=== PATIENT | female | born 1970 | race Caucasian/White ===

== ENCOUNTER 2017-11-26 09:24 | Observation (INO) | payer BC ==
[~2017-11-26] VITALS: Ht 162.6 cm; Wt 101.0 kg
[~2017-11-26 09:24] MED LIST: ALPR2TAB3 PO; CEPH500C3 PO; HYDR12.56 PO; LORTA5 PO
[2017-11-26 09:33] VITALS: BP 168/84; PULSE 94; RESP 18; TEMP 97.6; O2SAT 99
[2017-11-26 09:44] LABS: AUTOMATED NEUTROPHIL # 3.8 TH/MM3 (1.8-7.7); BASOPHIL # 0.1 TH/MM3 (0-0.2); BASOPHIL % 1.4 % (0.0-2.0); EOSINOPHIL # 0.1 TH/MM3 (0-0.4); EOSINOPHIL % 1.4 % (0.0-4.0); HEMATOCRIT 43.6 % (35.0-46.0); HEMOGLOBIN 14.2 GM/DL (11.6-15.3); LYMPH % 22.1 % (9.0-44.0); LYMPHOCYTE # 1.2 TH/MM3 (1.0-4.8); MEAN CELL VOLUME 82.1 FL (80.0-100.0); MEAN CORPUSCULAR HEMOGLOBIN 26.8 PG (27.0-34.0); MEAN CORPUSCULAR HGB CONC 32.6 % (32.0-36.0); MEAN PLATELET VOLUME 8.2 FL (7.0-11.0); MONO % 7.1 % (0.0-8.0); MONOCYTE # 0.4 TH/MM3 (0-0.9); PLATELET COUNT 249 TH/MM3 (150-450); RED BLOOD COUNT 5.32 MIL/MM3 (4.00-5.30); RED CELL DISTRIBUTION WIDTH 12.6 % (11.6-17.2); WHITE BLOOD COUNT 5.6 TH/MM3 (4.0-11.0)
[2017-11-26 09:56] LABS: CALCIUM 8.2 MG/DL (8.5-10.1); CHLORIDE 99 MEQ/L (98-107); SODIUM (NA) 136 MEQ/L (136-145)
[2017-11-26 09:57] LABS: BICARBONATE 31.9 MEQ/L (21.0-32.0); BLOOD UREA NITROGEN 13 MG/DL (7-18); GLUCOSE,RANDOM 66 MG/DL (74-106)
[2017-11-26 10:00] LABS: GLOMERULAR FILTRATION RATE 89 ML/MIN (>89)
[2017-11-26 10:02] VITALS: BP 154/90; PULSE 74; RESP 18; O2SAT 99
[2017-11-26 10:05] LABS: TROPONIN I LESS THAN 0.02 NG/ML (0.02-0.05)
--- NOTE | 2017-11-26 10:12 | PD ---
HPI Chief Complaint: Chest Pain Time Seen by Provider: 09:55 Travel History International Travel<30 days: No Contact w/Intl Traveler<30days: No Traveled to known affect area: No History of Present Illness HPI 47 year old female in ED presenting with non radiating left sided chest pressure onset this morning which she states last several minutes at a time, comes and goes but currently on evaluation is gone, can be a 5. The patient was seen one week ago in urgent care for a cough and feeling of general malaise, she was diagnosed with walking pneumonia at that time and started on Doxycycline and Prednsione which she finished this morning. She denies feeling improved and has still been having a productive cough with one episode of post tussive emesis, a sensation of her "head swelling" and feeling warm. She denies any N/V/D, fevers, diaphoresis. She has had a similar episode of chest pain in the past which resulted in an ED visit with EKG changes, ECHO and Stress test follow up at that time were negative. Non smoker, social drinker. Risk Factors:[None] Modifying Factors:[None] Associated sign and symptoms:chest pain, cough, general malaise, PFSH Past Medical History Hx Anticoagulant Therapy: No Depression: Yes Diabetes: No Diminished Hearing: No Hypertension: No (Denies) Immunizations Current: Yes Influenza Vaccination: No ?: Not LMP: 09/2017 Past Surgical History Section: Yes (X's 2) Oral Surgery: Yes ([place] teeth) Other Surgery: Yes (Benign tumor removed right neck, uterine ablation) Social History Alcohol Use: Yes (Occ.) Tobacco Use: No Substance Use: No Allergies-Medications (Allergen,Severity, Reaction): Coded Allergies: No Known Allergies (Unverified , 07/07/16) Reported Meds & Prescriptions Reported Meds & Active Scripts Active Keflex (Cephalexin Monohydrate) 500 Mg Cap 500 Mg PO Q8 5 Days Hydrocodone/Acetaminophen 5 mg/325 mg 1 Tab Tab 1 Tab PO Q4-6HPRN Reported Alprazolam 2 Mg Tab 0.25 Mg PO Q6H PRN Hctz (Hydrochlorothiazide) 12.5 Mg Cap 25 Mg PO DAILY Review of Systems Except as stated in HPI: all other systems reviewed are Neg Physical Exam Narrative GENERAL: Well developed female, no acute distress. Awake and oriented 3. SKIN: Warm and dry. HEAD: Atraumatic. Normocephalic. EYES: Pupils equal and round. No scleral icterus. No injection or drainage. ENT: No nasal bleeding or discharge. Mucous membranes pink and moist. NECK: Trachea midline. No JVD. Supple. CARDIOVASCULAR: Regular rate and rhythm. Pulses are present and equal bilaterally. No wheezes or crackles. RESPIRATORY: No accessory muscle use. Clear to auscultation. Breath sounds equal bilaterally. GASTROINTESTINAL: Abdomen soft, non-tender, nondistended. Hepatic and splenic margins not palpable. MUSCULOSKELETAL: Extremities without clubbing, cyanosis, or edema. No obvious deformities. Mild TTP to anterior chest wall. NEUROLOGICAL: Awake and alert. No obvious cranial nerve deficits. Motor grossly within normal limits. Five out of 5 muscle strength in the arms and legs. Normal speech. PSYCHIATRIC: Appropriate mood and affect; insight and judgment normal. Data Data Last Documented VS Vital Signs Date Time Temp Pulse Resp B/P (MAP) Pulse Ox O2 Delivery O2 Flow Rate FiO2 11/26/17 10:02 74 18 154/90 (111) 99 Room Air 11/26/17 09:33 97.6 Orders Orders Electrocardiogram (11/26/17 09:35) Complete Blood Count With Diff (11/26/17 09:35) Basic Metabolic Panel (Bmp) (11/26/17 09:35) Ckmb (Isoenzyme) Profile (11/26/17 09:35) Troponin I (11/26/17 09:35) Chest, Single Ap (11/26/17 09:35) Iv Access Insert/Monitor (11/26/17 09:35) Ecg Monitoring (11/26/17 09:35) Oxygen Administration (11/26/17 09:35) Oximetry (11/26/17 09:35) Potassium Chloride Eff (K-Lyte Cl Eff) (11/26/17 10:15) Influenzae A/B Antigen (11/26/17 11:01) D-Dimer (11/26/17 11:01) Admit Order (Ed Use Only) (11/26/17 11:01) Labs Laboratory Tests Test 11/26/17 09:25 White Blood Count 5.6 TH/MM3 Red Blood Count 5.32 MIL/MM3 Hemoglobin 14.2 GM/DL Hematocrit 43.6 % Mean Corpuscular Volume 82.1 FL Mean Corpuscular Hemoglobin 26.8 PG Mean Corpuscular Hemoglobin Concent 32.6 % Red Cell Distribution Width 12.6 % Platelet Count 249 TH/MM3 Mean Platelet Volume 8.2 FL Neutrophils (%) (Auto) 68.0 % Lymphocytes (%) (Auto) 22.1 % Monocytes (%) (Auto) 7.1 % Eosinophils (%) (Auto) 1.4 % Basophils (%) (Auto) 1.4 % Neutrophils # (Auto) 3.8 TH/MM3 Lymphocytes # (Auto) 1.2 TH/MM3 Monocytes # (Auto) 0.4 TH/MM3 Eosinophils # (Auto) 0.1 TH/MM3 Basophils # (Auto) 0.1 TH/MM3 CBC Comment DIFF FINAL Differential Comment Blood Urea Nitrogen 13 MG/DL Creatinine 0.70 MG/DL Random Glucose 66 MG/DL Calcium Level 8.2 MG/DL Sodium Level 136 MEQ/L Potassium Level 3.1 MEQ/L Chloride Level 99 MEQ/L Carbon Dioxide Level 31.9 MEQ/L Anion Gap 5 MEQ/L Estimat Glomerular Filtration Rate 89 ML/MIN Total Creatine Kinase 62 U/L Troponin I LESS THAN 0.02 NG/ML MDM Medical Decision Making Medical Screen Exam Complete: Yes Emergency Medical Condition: Yes Medical Record Reviewed: Yes Interpretation(s) EKG shows NSR, no ST elevation or depression, and no arrhythmias. No significant T-wave inversions. There is a T-wave inversion and 3 and aVF which is seen in previous EKG as well. Laboratory Tests Test 11/26/17 09:25 Red Blood Count 5.32 MIL/MM3 (4.00-5.30) Mean Corpuscular Hemoglobin 26.8 PG (27.0-34.0) Random Glucose 66 MG/DL (74-106) Calcium Level 8.2 MG/DL (8.5-10.1) Potassium Level 3.1 MEQ/L (3.5-5.1) Troponin I LESS THAN 0.02 NG/ML Last 24 hours Impressions Chest X-Ray 11/26/17 0944 Signed Impressions: Service Date/Time: Sunday, November 26, 2017 09:52 - CONCLUSION: No acute disease. Farhan Puckett MD Differential Diagnosis ACS versus bronchitis versus pneumonia versus costochondritis Narrative Course EKG did not show any signs new ST changes. Cardiac enzymes are negative. She does have a mildly low potassium and p.o. potassium was given in the ER. Chest x-ray was unremarkable. At this point, my plan would be to admit the patient to chest pain center for evaluation of atypical chest pain. She did have a chest pain episode in the ER but did not see any signs of EKG dysrhythmias on monitors. Diagnosis Primary Impression: Atypical chest pain Admitting Information Admitting Physician Requests: Admit Denise Vickers MD Nov 26, 2017 10:12
[2017-11-26] MEDS ORDERED: POTASSIUM CHLORIDE 25 MEQ EFFERVESCENT TAB PO ONE (10:15)
--- NOTE | 2017-11-26 10:19 | RADRPT ---
EXAM DATE/TIME: 11/26/2017 09:52 [facility] COMPARISON: CHEST SINGLE AP, October 09, 2011, 22:38. INDICATIONS : Mid chest pain today. MEDICAL HISTORY : SURGICAL HISTORY : section. Uterine ablation. Benign tumor removed from right neck. ENCOUNTER: Initial ACUITY: 1 day PAIN SCORE: 5/10 LOCATION: chest FINDINGS: A single view of the chest demonstrates the lungs to be symmetrically aerated without evidence of mas s, infiltrate or effusion. The cardiomediastinal contours are unremarkable. Osseous structures are intact. CONCLUSION: No acute disease. Farhan Puckett MD on November 26, 2017 at 10:16 Board Certified Radiologist. This report was verified electronically.
[2017-11-26] MEDS ORDERED: SODIUM CHLOR 0.45% 1000 ML INJ 1,000 ML IV SCH (11:07)
[2017-11-26 11:09] VITALS: BP 131/70; PULSE 80; RESP 18; O2SAT 98
[2017-11-26] MEDS ORDERED: NALOXONE HCL 0.4 MG/ML AMP IV PUSH PRN (11:15)
[2017-11-26] MEDS ORDERED: ACETAMINOPHEN 325 MG TAB PO PRN (11:15)
[2017-11-26] MEDS ORDERED: MAGNESIUM HYDROXIDE SUSP 30 ML CUP PO PRN (11:15)
[2017-11-26] MEDS ORDERED: BISACODYL 10 MG SUPP RECTAL PRN (11:15)
[2017-11-26] MEDS ORDERED: SENNOSIDES 8.6 MG TAB PO PRN (11:15)
[2017-11-26] MEDS ORDERED: SODIUM CHLORIDE 0.9% FLUSH 10 ML FLUSH IV FLUSH PRN (11:15)
[2017-11-26] MEDS ORDERED: ONDANSETRON HCL 4 MG/2 ML VIAL IVP PRN (11:15)
[2017-11-26] MEDS ORDERED: NAPR500 PO (11:59)
[2017-11-26] MEDS ORDERED: ACETAMINOPHEN 500 MG CPLT PO ONE (12:00)
[2017-11-26] MEDS ORDERED: KETOROLAC TROMETHAMINE 10 MG TAB PO ONE (12:00)
--- NOTE | 2017-11-26 12:02 | PD.CONS ---
HPI Service [facility] Consult Requested By ED Physician Primary Care Physician Mirela Bhandari M.D. Diagnoses: (1) Atypical chest pain History of Present Illness Written by Lida Stuart, acting as scribe for Dr. Mccollum on 11/26/17 at 12:01. This is a pleasant 47-year-old female patient with a known medical history of depression who presented to ED with complaints of chest pressure. Patient states that over the past couple weeks she has had complaints of productive cough and general malaise. Patient saw her PCP was diagnosed with community acquired pneumonia was placed on doxycycline and prednisone which she had finished on Saturday. She states that she has improved with continued complaints of productive cough, patient states that phlegm is white. Denies any recent fevers, chills, abdominal pain, nausea, vomiting or diarrhea. Patient states that around 7:30 this morning while driving to work she developed chest pressure in the middle of her chest that was similar to what she has been feeling all week with her associated cough. Also complaints of some atypical flushing of the face. Does admit to undergoing a cardiac stress test over 10 years ago for some medication side effect complaints of chest pain which was reportedly negative. PCP is Dr. Camargo. Denies any significant family medical history cardiovascular disease. Denies any previous or current tobacco use. Review of Systems Constitutional: COMPLAINS OF: Diaphoretic episodes, Fatigue, DENIES: Fever, Chills Eyes: DENIES: Blurred vision, Diplopia Respiratory: COMPLAINS OF: Cough, Sputum production, Shortness of breath Cardiovascular: COMPLAINS OF: Chest pain Gastrointestinal: DENIES: Abdominal pain, Black stools, Bloody stools, Constipation, Diarrhea, Nausea, Vomiting Integumentary: DENIES: Abnormal pigmentation Hematologic/lymphatic: DENIES: Bruising Immunologic/allergic: DENIES: Eczema Neurologic: DENIES: Abnormal gait Psychiatric: COMPLAINS OF: Anxiety Except as stated in HPI: all other systems reviewed are Neg Past Family Social History Allergies: Coded Allergies: No Known Allergies (Unverified Allergy, Unknown, 11/26/17) Past Medical History Depression Past Surgical History 2 [place] teeth removal Benign carotid body tumor removal Reported Medications Reported Meds & Active Scripts Active Naprosyn (Naproxen) 500 Mg Tab 500 Mg PO BID 30 Days Reported Hydrochlorothiazide (Miscellaneous Medication) 12.5 Mg Cap 25 Mg PO DAILY Active Ordered Medications Current Medications Medications (Trade) Dose Ordered Sig/Slime Route Start Time Stop Time Status Last Admin (Tylenol) 1,000 mg ONCE ONCE PO 11/26/17 12:00 11/26/17 12:01 UNV (Toradol) 15 mg ONCE ONCE PO 11/26/17 12:00 11/26/17 12:01 UNV Family History Family medical history significant for MS on father's side. Mother had history of lung cancer was a smoker. Social History Denies any current or previous tobacco use. Admits to socially drinking alcohol. Denies any illicit drug use. Physical Exam Vital Signs Vital Signs Date Time Temp Pulse Resp B/P (MAP) Pulse Ox O2 Delivery O2 Flow Rate FiO2 11/26/17 11:09 76 98 Room Air 11/26/17 11:09 80 18 131/70 (90) 98 Room Air 11/26/17 10:02 74 18 154/90 (111) 99 Room Air 11/26/17 10:01 98 Room Air 11/26/17 09:36 94 11/26/17 09:33 97.6 94 18 168/84 (112) 99 Physical Exam GENERAL: Well-nourished, well-developed patient in NAD. SKIN: Warm and dry. No rash. HEAD: Normocephalic. Atraumatic. EYES: Pupils equal and round. No scleral icterus. No injection or drainage. ENT: No nasal bleeding or discharge. Mucous membranes pink and moist. NECK: Supple. Trachea midline. CARDIOVASCULAR: Regular rate and rhythm. S1, S2 noted. No murmur appreciated. No reproducible chest pain RESPIRATORY: No accessory muscle use. Clear to auscultation. Breath sounds equal bilaterally. GASTROINTESTINAL: Abdomen soft, non-tender, nondistended. Normoactive bowel sounds x4. MUSCULOSKELETAL: No obvious deformities. Extremities without clubbing, cyanosis , or edema. NEUROLOGICAL: Awake and alert. No obvious cranial nerve deficits. Motor grossly within normal limits. 5/5 muscle strength in bilateral upper and lower extremities. Normal speech. PSYCHIATRIC: Appropriate mood and affect; insight and judgment normal. Laboratory Laboratory Tests Test 11/26/17 09:25 White Blood Count 5.6 Red Blood Count 5.32 Hemoglobin 14.2 Hematocrit 43.6 Mean Corpuscular Volume 82.1 Mean Corpuscular Hemoglobin 26.8 Mean Corpuscular Hemoglobin Concent 32.6 Red Cell Distribution Width 12.6 Platelet Count 249 Mean Platelet Volume 8.2 Neutrophils (%) (Auto) 68.0 Lymphocytes (%) (Auto) 22.1 Monocytes (%) (Auto) 7.1 Eosinophils (%) (Auto) 1.4 Basophils (%) (Auto) 1.4 Neutrophils # (Auto) 3.8 Lymphocytes # (Auto) 1.2 Monocytes # (Auto) 0.4 Eosinophils # (Auto) 0.1 Basophils # (Auto) 0.1 CBC Comment DIFF FINAL Differential Comment D-Dimer Quantitative (PE/DVT) 0.24 Blood Urea Nitrogen 13 Creatinine 0.70 Random Glucose 66 Calcium Level 8.2 Sodium Level 136 Potassium Level 3.1 Chloride Level 99 Carbon Dioxide Level 31.9 Anion Gap 5 Estimat Glomerular Filtration Rate 89 Total Creatine Kinase 62 Troponin I LESS THAN 0.02 Date/Time Source Procedure Growth Status 11/26/17 11:05 Nasal Washing Influenza Types A,B Antigen (PEREZ) - Final NEGATIVE FOR FLU A AND B ANTIGEN.... Complete Result Diagram: 11/26/1792411/26/17924 Imaging Last Impressions Chest X-Ray 11/26/17 0935 Signed Impressions: Service Date/Time: Sunday, November 26, 2017 09:52 - CONCLUSION: No acute disease. Farhan Puckett MD Assessment and Plan Problem List: (1) Atypical chest pain ICD Code: R07.89 - Other chest pain Status: Acute Plan: Likely secondary to recent PNA vs costochondritis. Will give antiinflammatory for the pain. Patient risk factors for ACS or underlying cardiovascular disease are low. Denies any family medical history of cardiovascular disease, denies tobacco history or present use. Chest x-ray reviewed showing no acute disease. CBC and BMP reviewed, essentially unremarkable. Hypokalemia noted, given replacement in ED. D-dimer was negative. Troponin negative. EKG reviewed, showing normal sinus rhythm, heart rate controlled, no ST changes to indicate ischemia. Encouraged patient to return to ED if symptoms persist or worsen. Encouraged to follow-up with PCP upon discharge. Patient is stable at this time and agreeable to the plan. Medical Decision Making Impression and Plan This note was transcribed by scribe [[email or web address]]. I, Dr. Almita Mccollum personally performed the history, physical exam, and medical decision making; and confirmed the accuracy of the information in the transcribed note. Physical and H&P done at the time of this note in his only signed now. Discussed with the patient and her family regarding the likelihood that this is noncardiac chest pain. She would like to attempt medical management this time with outpatient follow-up. On review of her EKG and chest x-ray I do note there is no acute cardiac arrhythmia and her Authenticated by Dr. Almita Mccollum on 11/26/17 at 12:58. Lida Stuart Nov 26, 2017 12:02 Almita Mccollum MD Nov 26, 2017 12:59
--- NOTE | 2017-11-26 12:03 | HHI.DCPOC ---
Discharge Care Plan Diagnosis: (1) Atypical chest pain Goals to Promote Your Health * To prevent worsening of your condition and complications * To maintain your health at the optimal level Directions to Meet Your Goals Take your medications as prescribed Follow your dietary instruction Follow activity as directed Keep your appointments as scheduled Take your immunizations and boosters as scheduled If your symptoms worsen call your PCP, if no PCP go to Urgent Care Center or Emergency Room Smoking is Dangerous to Your Health. Avoid second hand smoke Call the 24-hour hour crisis hotline for domestic abuse at Lida Stuart Nov 26, 2017 12:03
[2017-11-26 12:23] VITALS: BP 128/88
--- NOTE | 2017-11-26 12:56 | EKG ---
Date Performed: 11/26/2017 Time Performed: 09:28:52 PTAGE: 47 years EKG: Sinus rhythm NONSPECIFIC ST & T-WAVE ABNORMALITY BORDERLINE ECG Since PREVIOUS TRACING , no significant change noted PREVIOUS TRACIN10/09/2011 22.42 DOCTOR: Leigh Cha Interpretating Date/Time 11/26/2017 12:54:55
[2017-11-26] MEDS ORDERED: DOCUSATE SODIUM 50 MG/SENNA 8.6 MG TAB PO SCH (21:00)
[2017-11-26] MEDS ORDERED: SODIUM CHLORIDE 0.9% FLUSH 10 ML FLUSH IV FLUSH SCH (21:00)
== END 2017-11-26 12:22 | disposition home or self-care (01) ==
LOC: PHED 09:24 → PHEDA 11:02
PROVIDERS: ADMIT Hospitalist; ATTEND Hospitalist
DX: R07.89 Other chest pain (principal); R05 Cough; R11.10 Vomiting, unspecified; R53.81 Other malaise; E87.6 Hypokalemia; F32.9 Major depressive disorder, single episode, unspecified
CPT/HCPCS: 71045; 80048; 82550; 84484; 85025; 85379; 87804; 93005; 99285; G0378